=== PATIENT | male | born 1940 | race Caucasian/White ===

== ENCOUNTER 2020-01-13 09:44 | Outpatient (RCR) | payer MEDICARE ==
[~2020-01-13] VITALS: Ht 180 cm; Wt 96.3 kg
[2020-01-13] MEDS ORDERED: METF-399 PO (11:15)
[2020-01-13] MEDS ORDERED: INSU100V5 SQ (11:15)
[2020-01-13] MEDS ORDERED: SITA100T12 PO (11:15)
[2020-01-13] MEDS ORDERED: PANT40TA52 PO (11:15)
[2020-01-13] MEDS ORDERED: ASCO500C17 PO (11:15)
[2020-01-13] MEDS ORDERED: TOLT2TAB5 PO (11:15)
[2020-01-13] MEDS ORDERED: STL80T PO (11:15)
[2020-01-13] MEDS ORDERED: ASPI-999 PO (11:15)
[2020-01-13] MEDS ORDERED: LOTE5DRO7 OP (11:15)
== END 2020-01-13 12:18 | disposition home or self-care (01) ==
LOC: PREOP 09:44
PROVIDERS: ATTEND Specialist
DX: Z01.818 Encounter for other preprocedural examination (principal); M27.40 Unspecified cyst of jaw; K04.8 Radicular cyst

== ENCOUNTER 2020-01-15 11:34 | Day surgery (SDC) | payer MEDICARE, OTHER ==
[~2020-01-15] VITALS: Ht 180 cm; Wt 96.3 kg
[2020-01-15] VITALS (12 sets, daily range): BP systolic 96–134; BP diastolic 50–97
[~2020-01-15 11:34] MED LIST: ASCO500C17 PO; ASPI-999 PO; INSU100V5 SQ; LOTE5DRO7 OP; METF-399 PO; PANT40TA52 PO; SITA100T12 PO; STL80T PO; TOLT2TAB5 PO
[2020-01-15] MEDS ORDERED: ceFAZolin 2 GM IV Premixed 50 ML ONE (11:59)
[2020-01-15] MEDS ORDERED: fentaNYL INJECTION 100 MCG/2 ML AMP ONE (12:22)
[2020-01-15] MEDS ORDERED: proPOfol 200 MG/20 ML (DIPRIVAN) VIAL IV ONE (12:31)
[2020-01-15] MEDS ORDERED: ONDANSETRON 4 MG/2 ML (SDV) Z0FRAN ONE (12:31)
[2020-01-15] MEDS ORDERED: LIDOCAINE PF 2% 5 ML (XYLOCAINE) VIAL ONE (12:31)
[2020-01-15] MEDS ORDERED: SEVOFLURANE (ULTANE) 15 ML INHAL SOLN ONE ×2 (12:32→14:36)
[2020-01-15] MEDS ORDERED: ceFAZolin 2 GM IV Premixed 50 ML IV ONE (13:15)
[2020-01-15] MEDS ORDERED: LACTATED RINGERS 1,000 ML IV PRN (13:15)
[2020-01-15] MEDS ORDERED: LIDOCAINE/EPI 2% 1:100,00 (XYLOCAINE) 20 ML VIAL ONE (13:20)
[2020-01-15] MEDS ORDERED: ROPIVACAINE 5MG/ML 30ML VIAL ONE ×2 (13:22→15:20)
--- NOTE | 2020-01-15 13:53 | Progress Note-Pre Operative ---
Pre-Operative Progress Note H&P Reviewed The H&P was reviewed, patient examined and no changes noted. Date Seen by Provider: Jan 15, 2020 Time Seen by Provider: 13:00 Date H&P Reviewed: Jan 15, 2020 Time H&P Reviewed: 13:00 Pre-Operative Diagnosis: cyst l angle of mandible, retained tooth 17 JEWEL JOSEPH DDS Jan 15, 2020 13:53
[2020-01-15] MEDS ORDERED: HYDROcodone/APAP 7.5MG-325 MG/15 ML (LORTAB) UDC PO PRN (14:00)
[2020-01-15] MEDS ORDERED: ROCURONIUM 10 MG/ML 5 ML SYRINGE IV ONE (14:19)
[2020-01-15] MEDS ORDERED: NEOSTIGMINE 3 MG/3 ML VIAL ONE (14:36)
[2020-01-15] MEDS ORDERED: GLYCOPYRROLATE 0.2 MG/ML (ROBINUL) 2 ML VIAL ONE (14:36)
[2020-01-15] MEDS: ceFAZolin INJECTION 1,000 MG in WATER (STERILE) FOR INJECTION 10 ML IV SCH (15:11)
[2020-01-15] MEDS ORDERED: ONDANSETRON 4 MG/2 ML (SDV) Z0FRAN IVP PRN (15:15)
[2020-01-15] MEDS ORDERED: morphine INJ 10 MG/ML 1ML (SYR OR VIAL) IVP ONE (15:15)
[2020-01-15] MEDS ORDERED: ACHD5005 PO (16:31)
[2020-01-15] MEDS ORDERED: AMOX500T2 PO (16:31)
--- NOTE | 2020-01-17 11:16 | Anesthesia-General Post-Op ---
General Patient Condition Mental Status/LOC: Same as Preop Cardiovascular: Satisfactory Nausea/Vomiting: Absent Respiratory: Satisfactory Pain: Controlled Complications: Absent Post Op Complications Complications None Follow Up Care/Instructions Patient Instructions None needed. Anesthesia/Patient Condition Patient Condition Patient is doing well, no complaints, stable vital signs, no apparent adverse anesthesia problems. No complications reported per nursing. KERRY SAENZ CRNA Jan 17, 2020 11:16
--- NOTE | 2020-02-17 19:12 | OPERATIVE REPORT ---
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 ANESTHESIA: General endotracheal. ESTIMATED BLOOD LOSS: Minimal. FLUIDS: 950 mL of crystalloid. Instrument, needle and sponge count were correct x2. 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 PROCEDURE: Enucleation of the cyst and removal of tooth #17. HISTORY OF PRESENT ILLNESS AND INDICATIONS FOR PROCEDURE: The patient is an 79-year-old white male, who presents. He has had numerous surgical procedures in the past including heart catheterization, appendectomy, prostate surgery, knee replacement, etc. He presents upon referral from his dentist in which case he had noticed a cyst in his left mandibular angle. After speaking extensively with the patient, I advised him that the cyst has been there for numerous years that we would need to remove it. If he did not want the potential sequela of not operating would be either an infection or pathologic fracture. I advised him during the surgery that he may have some altered sensation in the distribution of the inferior alveolar nerve and this could be either temporary or permanent as well as pathological fracture requiring surgical intervention at the time of removal. He was allowed to ask questions, they were answered and he was scheduled for surgery at the earliest operating time. DESCRIPTION OF PROCEDURE: The patient was taken to the operating room and placed on the operating table. The appropriate monitors were placed and anesthesia was induced via orotracheal intubation without difficulty. Once this was secured, the surgeon left the room, scrubbed, returned, donned sterile gowns and gloves and prepped and draped the patient in the usual standard and sterile fashion. After this, I deposited local anesthesia in the left mandibular block as well as infiltration in the left mandibular vestibule. After this was excised sharply along the superior aspect of the mandible. At this point, I was able to identify the cyst and upon elevating the tissue. Apparently, the cyst contents were in the pressures, they began to ooze, they expressed in the oral cavity as a dark brown liquid. No signs of purulence. After this, I was able to identify tooth #17. This was luxated and removed without difficulty. I was then able to identify the cyst lining. This was elevated off with a curette and then sent for frozen section as well as the tooth. After speaking with the pathologist, it was determined that this was a benign dentigerous cyst. After that, I was able to enucleate the remaining portions of the cyst lining. Was able to identify the inferior alveolar nerve and removed our retractors from the area of the enucleation of the cyst lining. After removing in the entirety of the cyst lining. We then copiously irrigated with normal saline and then it was closed with 4-0 Vicryl in a running and interrupted fashion. Fortunately, there was no pathologic fracture of the mandible. Then, after this, he was allowed to emerge from his general anesthetic until he was breathing spontaneously and then he was transported to the recovery room, assessed to have stable vital signs, breathing spontaneously with pulse ox of 99%. Job ID: [id number] DocumentID: [id number] Dictated Date: 02/17/2020 15:12:32 Towel Sewer Date: 02/17/2020 19:11:48 Dictated By: JEWEL JOSEPH DDS
== END 2020-01-15 17:05 | disposition home or self-care (01) ==
LOC: SDC 11:34
PROVIDERS: ATTEND Specialist
DX: K09.0 Developmental odontogenic cysts (principal); I25.119 Atherosclerotic heart disease of native coronary artery with unspecified angina pectoris; I11.0 Hypertensive heart disease with heart failure; I50.9 Heart failure, unspecified; K21.9 Gastro-esophageal reflux disease without esophagitis; E11.9 Type 2 diabetes mellitus without complications; E66.9 Obesity, unspecified; Z68.29 Body mass index [BMI] 29.0-29.9, adult; Z79.899 Other long term (current) drug therapy; Z88.5 Allergy status to narcotic agent; Z91.010 Allergy to peanuts; Z85.46 Personal history of malignant neoplasm of prostate; Z95.5 Presence of coronary angioplasty implant and graft; Z86.73 Personal history of transient ischemic attack (TIA), and cerebral infarction without residual deficits
CPT/HCPCS: 82962; 87070; 87075; 87076; 87081; 87185; 87205; 88305; 88331